=== PATIENT | female | born 1985 | race African-American/Black ===

== ENCOUNTER 2021-12-24 10:12 | Emergency (ER) | payer SELFPAY ==
[~2021-12-24] VITALS: Ht 180.3 cm; Wt 108.9 kg
--- NOTE | 2021-12-24 10:18 | NUR ---
[facility] C/O L SIDED CHEST PAIN (TIGHTNESS) RAD TO NECK AREA. 07/20 PS. THE PATIENT IN ROOM AIR AND DENIES SOB. RESPIRATION REGULAR AND UNLABORED. THE PATIENT IS ATTACHED TO THE MONITOR. WILL CONTINUE TO MONITOR THE PATIENT.
--- NOTE | 2021-12-24 10:18 | NUR ---
IV LINE IS ESTABLISHED, BLOOD SPECIMEN COLLECTED AND SENT TO THE LAB. THE LINE IS SALINE LOCKED.
[2021-12-24] MEDS ORDERED: ADENOSINE 6 MG/2 ML VIAL ONE (10:30)
[2021-12-24] MEDS ORDERED: BIRTH CONTROL PO (10:39)
--- NOTE | 2021-12-24 10:40 | NUR ---
[employer]INEER AT THE BEDSIDE
[2021-12-24] MEDS ORDERED: ADENOSINE 6 MG/2 ML VIAL IVP ONE (11:00)
[2021-12-24 11:01] LABS: BASOPHILS # (AUTO) 0.1 K/uL (0.0-0.2); BASOPHILS % (AUTO) 1.2 % (0.0-2.0); EOSINOPHILS % (AUTO) 1.4 % (0.0-6.0); HEMATOCRIT 38 % (33-45); HEMOGLOBIN 12.5 g/dL (11.5-14.8); LYMPHOCYTES # (AUTO) 3.5 K/uL (0.8-4.8); LYMPHOCYTES % (AUTO) 47.6 % (20.0-44.0); MEAN CORPUSCULAR HGB CONC 33 g/dl (31.0-36.0); MEAN CORPUSCULAR VOLUME 87 fL (82-100); MONOCYTES # (AUTO) 0.4 K/uL (0.1-1.30); MONOCYTES % (AUTO) 6.1 % (2.0-12.0); NEUTROPHILS # (AUTO) 3.2 K/uL (1.8-8.9); NEUTROPHILS % (AUTO) 43.7 % (43.0-81.0); PLATELET COUNT (AUTO) 367 K/uL (150-450); RED BLOOD CELL COUNT(AUTO) 4.32 MIL/uL (4.0-5.2); WHITE BLOOD COUNT (AUTO) 7.4 K/uL (4.3-11.0)
[2021-12-24 11:10] LABS: CALCIUM, SERUM 8.8 mg/dL (8.5-10.1); CARBON DIOXIDE 21 mmol/L (21-32); CHLORIDE 107 mmol/L (98-107); CREATININE 1.3 mg/dL (0.6-1.3); GLUCOSE 144 mg/dL (74-106); POTASSIUM 3.8 mmol/L (3.5-5.1); SODIUM SERUM 141 mmol/L (136-145); UREA NITROGEN, BLOOD 11 mg/dL (7-18)
[2021-12-24] MEDS ORDERED: NORG1TAB73 PO (11:47)
--- NOTE | 2021-12-24 12:26 | NUR ---
IV removed. Catheter intact and site benign. Pressure and 4x4 applied to site. No bleeding noted.Patient discharged to home in stable condition. Written and verbal after care instructions given. Patient verbalizes understanding of instruction.
[2021-12-24 12:27] VITALS: BP 104/72
== END 2021-12-24 12:27 | disposition home or self-care (01) ==
LOC: ER 10:34
DX: I47.1 Supraventricular tachycardia (principal); R06.00 Dyspnea, unspecified; R07.89 Other chest pain
CPT/HCPCS: 99291; 96374; 93005; 71045; 85025; 80048; 36415; 84484; J0153